=== PATIENT | male | born 2000 | race African-American/Black ===

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

== ENCOUNTER 2020-01-26 12:59 | Emergency (ER) | payer MEDICAID ==
[~2020-01-26] VITALS: Ht 177.8 cm; Wt 56.7 kg
[~2020-01-26 12:59] MED LIST changes: +CEPHALEXIN500 MG ORAL
[2020-01-26 13:22] VITALS: BP 143/76
--- NOTE | 2020-01-26 13:23 | NUR ---
ED Nurse Note: Patient walked in to ER c/o painfull voiding x 2 days. Patient AAO x4, VSS at this time.
[2020-01-26 13:59] LABS: APPEARANCE,URINE SLIGHTLY CLOUDY; BILIRUBIN, URINE NEGATIVE (NEGATIVE); GLUCOSE, URINE (UA) NEGATIVE (NEGATIVE); KETONES,URINE NEGATIVE (NEGATIVE); LEUKOCYTE ESTERASE ,URINE 3+ (NEGATIVE); NITRITE,URINE NEGATIVE (NEGATIVE); PH,URINE 8 (4.5-8.0); PROTEIN,URINE 1+ (NEGATIVE); UROBILINOGEN,URINE 4 MG/DL (0.0-1.0)
[2020-01-26 14:03] LABS: COLOR,URINE YELLOW
--- NOTE | 2020-01-26 14:26 | Emergency Room Report ---
History of Present Illness General Chief Complaint: Male Urogenital Problems Present Illness HPI 19-year-old male presents to the emergency department complaining of 7 out of 10 severity dysuria with penile discharge x2 days. Patient reports recent unprotected intercourse. Patient is requesting treatment for STDs. Patient denies abdominal pain or tenderness, fevers, chills, joint pain, rashes or genital lesions. Patient denies testicular pain or swelling. Patient denies hematuria or urinary frequency. No other aggravating or relieving factors at this time. Allergies: Coded Allergies: IBUPROFEN (Verified Allergy, Unknown, 01/26/20) COVID-19 Screening Contact w/high risk pt: No Recent Travel to affected area: No Experienced COVID-19 symptoms?: No Patient History Past Medical History: see triage record Past Surgical History: none Pertinent Family History: none Reviewed Nursing Documentation: PMH: Agreed; PSxH: Agreed Nursing Documentation-PMH Hx Cardiac Problems: No Hx Neurological Problems: No Review of Systems All Other Systems: negative except mentioned in HPI Physical Exam Vital Signs Date Time Temp Pulse Resp B/P (MAP) Pulse Ox O2 Delivery O2 Flow Rate FiO2 01/26/20 13:17 98.2 89 18 143/76 (98) 98 Room Air Sp02 EP Interpretation: reviewed, normal General Appearance: no apparent distress, alert, GCS 15, non-toxic Head: normocephalic, atraumatic Eyes: bilateral eye normal inspection, bilateral eye PERRL ENT: hearing grossly normal, normal voice Neck: full range of motion Respiratory: lungs clear, normal breath sounds, speaking full sentences Cardiovascular #1: regular rate, rhythm Gastrointestinal: normal bowel sounds, non tender, soft, non-distended, no guarding Rectal: deferred Genitourinary: normal inspection, no CVA tenderness, deferred - deferred genital exam Musculoskeletal: normal range of motion, gait/station normal, non-tender Neurologic: alert, motor strength/tone normal, oriented x3, sensory intact, responsive, speech normal Psychiatric: judgement/insight normal Skin: no rash, normal color Lymphatic: no adenopathy Medical Decision Making PA Attestation Dr. Donahue is my supervising Physician whom patient management has been discussed with. Diagnostic Impression: Primary Impression: Urethritis Additional Impression: UTI (urinary tract infection) Qualified Codes: N30.01 - Acute cystitis with hematuria ER Course 19-year-old male presents to the emergency department complaining of 7 out of 10 severity dysuria with penile discharge x2 days. Patient reports recent unprotected intercourse. Patient is requesting treatment for STDs. Patient denies abdominal pain or tenderness, fevers, chills, joint pain, rashes or genital lesions. Patient denies testicular pain or swelling. Patient denies hematuria or urinary frequency. No other aggravating or relieving factors at this time. Ddx considered but are not limited to UTi , Urethritis, LGV, STI, Stone, Cystitis, prostatitis Respiratory Scientist for PE was: Pt. deferred. Vital signs: are WNL, pt. is afebrile H&PE are most consistent with Urethritis ORDERS: - UA : WBC's increased Leuks, and Moderate bacteria indicating UTI ED INTERVENTIONS: -250mg Rocephin IM will dc with rx for Doxy and Keflex. pt. instructed to refrain from any form of intercourse until completion of abx. as he can still spread disease. Also all partners must be treated to prevent re-infection. DISCHARGE: At this time pt. is stable for d/c to home. Will provide printed patient care instructions, and any necessary prescriptions. Care plan and follow up instructions have been discussed with the patient prior to discharge. Labs Test 01/26/20 13:25 Urine Color Yellow Urine Appearance Slightly cloudy Urine pH 8 (4.5-8.0) Urine Specific [place] 1.015 (1.005-1.035) Urine Protein 1+ (NEGATIVE) Urine Glucose (UA) Negative (NEGATIVE) Urine Ketones Negative (NEGATIVE) Urine Blood 1+ (NEGATIVE) Urine Nitrite Negative (NEGATIVE) Urine Bilirubin Negative (NEGATIVE) Urine Urobilinogen 4 MG/DL (0.0-1.0) Urine Leukocyte Esterase 3+ (NEGATIVE) Urine RBC 2-4 /HPF (0 - 0) Urine WBC Tntc /HPF (0 - 0) Urine Squamous Epithelial Cells None /LPF (NONE/OCC) Urine Bacteria Moderate /HPF (NONE) Last Vital Signs Date Time Temp Pulse Resp B/P (MAP) Pulse Ox O2 Delivery O2 Flow Rate FiO2 01/26/20 13:22 98.2 18 143/76 98 Room Air 01/26/20 13:17 89 Disposition: HOME, SELF-CARE Condition: Stable Referrals: Breanne Rodriguez [facility]. [facility] Patient Instructions: Urethritis, Adult, Urinary Tract Infection Additional Instructions: Take medications as directed. MAKE SURE YOUR PARTNERS GET TREATED WITH ANTIBIOTICS to prevent becoming re- infected No intercourse for 7-10 days, as you are infectious and can spread the bacterial infection. Follow up with PCP in 3-5 days Return sooner to ED if new symptoms occur, or current symptoms become Echo Padilla January 26, 2020 14:26
[2020-01-26] MEDS ORDERED: VIBRAMYCIN100 MG ORAL (14:29)
[2020-01-26] MEDS ORDERED: CEPHALEXIN500 MG ORAL (14:29)
[2020-01-26] MEDS ORDERED: Lidocaine 1% MPF 10mg/ml 5ml INJ ONE (14:30)
[2020-01-26 14:38] VITALS: BP 122/69
== END 2020-01-26 14:38 | disposition home or self-care (01) ==
LOC: EMR 13:40
DX: N30.01 Acute cystitis with hematuria (principal); N34.2 Other urethritis; Z88.6 Allergy status to analgesic agent
CPT/HCPCS: 81003; 87086; 96372; 96374; J0696; Z7502; 99284

== ENCOUNTER 2020-04-24 17:18 | Emergency (ER) | payer SELFPAY ==
[~2020-04-24] VITALS: Ht 177.8 cm; Wt 59.0 kg
[~2020-04-24 17:18] MED LIST changes: +VIBRAMYCIN100 MG ORAL
[2020-04-24 17:22] VITALS: BP 119/75
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
--- NOTE | 2020-04-24 17:44 | NUR ---
ED Nurse Note: Noted skin tear on left escobedo with mild bleeding.
[2020-04-24] MEDS ORDERED: traMADol 50mg tab ORAL ONE (17:45)
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
[2020-04-24] MEDS ORDERED: TRAMADOL HCL50 MG ORAL (18:47)
[2020-04-24 19:00] VITALS: BP 132/75
--- NOTE | 2020-04-24 19:00 | NUR ---
ER DISCHARGE NOTE: Patient is cleared to be discharged per ERMD, pt is aox4, on room air, with stable vital signs. pt was given dc and prescription instructions, pt was able to verbalize understanding, pt id band removed without complications. pt is able to ambulate with steady gait. pt took all belongings.
== END 2020-04-24 19:00 | disposition home or self-care (01) ==
LOC: EMR 17:33
DX: S80.12XA Contusion of left lower leg, initial encounter (principal); S60.221A Contusion of right hand, initial encounter; S39.012A Strain of muscle, fascia and tendon of lower back, initial encounter; S40.812A Abrasion of left upper arm, initial encounter; V43.52XA Car driver injured in collision with other type car in traffic accident, initial encounter; Y92.410 Unspecified street and highway as the place of occurrence of the external cause; Z88.6 Allergy status to analgesic agent
CPT/HCPCS: 71045; 72070; 99284